=== PATIENT | male | born 1955 | race Caucasian/White ===

== ENCOUNTER 2021-08-02 10:21 | Inpatient (IN) ==
[2021-08-02] MEDS ORDERED: DEXAMETHASONE 10 MG/ML VIAL IV ONE (10:29)
[2021-08-02] MEDS ORDERED: 0.9 % SODIUM CHLORIDE 500 ML IV ONE (10:30)
[2021-08-02] MEDS ORDERED: ACETAMINOPHEN 325 MG TABLET PO ONE (10:31)
--- NOTE | 2021-08-02 10:36 | Emergency Department Note ---
HPI General Chief complaint: Shortness of Breath/Dyspnea Stated complaint: Shortness of breath Time Seen by Provider: 08/02/21 10:29 Mode of arrival: ambulatory Limitations: altered mental status History of Present Illness HPI Narrative: Narrative: 66 yo M w/ h/o CAD, HTN, MICKIE, DM2, and recent Dx of COVID 19 p/w SOB, hypoxia, tachycardia, tachypnea. He has been feeling unwell for about two weeks. He has had constant SOB worsened w/ exertion, accompanied by cough productive of "milky" sputum over that time. On asked about chest pain he reports that he does have this, but cannot give further details. He denies peripheral edema, immob ilization. His Hx is very limited - he is slow to answer questions and seems to be unable to maintain attention to give full answers. He was sent here from [facility] where he was found to have SaO2 85% on RA, HR 114, and RR 28 w/ ALOC. Related Data Home Medications Medication Instructions Recorded Confirmed aspirin 81 mg tablet,delayed 81 mg PO QDAY 03/13/16 08/02/21 release (Adult Low Dose Aspirin) Previous Rx's Medication Instructions Recorded blood sugar diagnostic (Blood #100 ea 03/29/21 Glucose Test) blood-glucose meter (Blood Glucose #1 ea 03/29/21 Monitoring) lancets #100 ea 03/29/21 metformin 1,000 mg tablet 1,000 mg PO BID #60 tab 04/21/21 losartan 25 mg tablet 25 mg PO QDAY #30 tab 05/04/21 levothyroxine 25 mcg tablet 25 mcg PO QDAY #60 tab 05/05/21 (Synthroid) gabapentin 100 mg capsule 200 mg PO BID #120 cap 07/07/21 Allergies Allergy/AdvReac Type Severity Reaction Status Date / Time [id number] Reductase AdvReac Mild Intolerance Verified 08/02/21 10:32 Inhibitor Review of Systems ROS ROS Narrative: Narrative: All systems ED: reviewed and negative except as stated. [facility] Narrative Patient History Narrative: Narrative: Medical/Surgical/Family History All Active Problems (Updated 08/02/21 @ 13:07 by Lavelle Spears MD) Acute dyspnea (Acute) HTN (hypertension) (Acute) CAD (coronary artery disease) (Acute) Pneumonia due to 2019 novel coronavirus (Acute) DM2 (diabetes mellitus, type 2) (Acute) Weakness (Acute) COVID (Acute) Abdominal pain (Acute) Bilateral flank pain (Acute) Body aches (Acute) BPH loc w/o ur obs/LUTS (Chronic 03/10/13) Hypertension (Chronic) Hyperlipidemia (Chronic) CAD (coronary artery disease) (Chronic) Anemia (Acute) Elevated alkaline phosphatase level (Acute) Elevated ferritin (Acute) Hypovitaminosis D (Chronic) Hypothyroidism (Chronic) Statin intolerance (Chronic) Leg pain (Acute) Muscle tear (Acute) Bilateral knee pain (Chronic) Diabetes mellitus with neuropathy (Chronic) Presence of stent in coronary artery in patient with coronary artery disease (Chronic) Sleep apnea in adult (Chronic) Abnormal thyroid blood test (Acute) Dizziness (Chronic) Impacted cerumen of right ear (Acute) Medical History Abnormal thyroid blood test Bilateral knee pain Body aches BPH loc w/o ur obs/LUTS (03/10/13) Diabetes mellitus with neuropathy Dizziness Hypertension Impacted cerumen of right ear Leg pain Presence of stent in coronary artery in patient with coronary artery disease Sleep apnea in adult ST elevation myocardial infarction (STEMI) Swelling of calf Surgical History History of heart artery stent (~2015) 3 valve stents History of neck surgery (~1971) left side- swollen lymph nodes Family History Father Leukemia Mother Brain tumor Social History Smoking Status: Former smoker Alcohol Intake Frequency: does not drink Substance Use: does not use Exam Narrative Narrative: Narrative: General Limitations: altered mental status General appearance: Present other (slightly confused, slow to respond to questions, ill appearing) Head Head: Present atraumatic and normocephalic Eye Eye: Present normal appearance ENT ENT: Present mucous membranes dry Neck Neck: Present normal inspection Chest Chest: Present normal inspection and symmetric chest wall rise Respiratory Respiratory: Present normal lung sounds bilaterally; Absent accessory muscle use or decreased breath sounds Cardiovascular Cardiovascular: Present regular rate, normal rhythm, +S1, +S2 and other (2+ B/L radial pulses); Absent systolic murmur or diastolic murmur Adbominal Abdominal: Present soft and normal bowel sounds; Absent distention or tenderness Extremities Extremities: Absent pedal edema Neurological Neurological: Present other (confused, slow to respond, alert to person, place, but not year. ) Psychiatric Psychiatric: Present normal affect Skin Skin: Present warm (WNL) and dry Course Vital Signs Vital signs: Vital Signs Temperature 100.4 F H 08/02/21 10:26 Pulse Rate 105 H 08/02/21 10:26 Respiratory Rate 28 H 08/02/21 10:26 Blood Pressure 89/69 08/02/21 10:26 Pulse Oximetry (%) 93 08/02/21 10:26 Temperature 98.6 F 08/02/21 16:56 Pulse Rate 69 08/02/21 14:41 Respiratory Rate 23 H 08/02/21 18:19 Blood Pressure 113/74 08/02/21 18:00 Pulse Oximetry (%) 93 08/02/21 18:19 MDM MDM Narrative Medical decision making narrative: Narrative: 66 yo M w/ h/o CAD, HTN, MICKIE, DM2, and recent Dx of COVID 19 p/w SOB, hypoxia, tachycardia, tachypnea. DDx - COVID19, PE, PNA, ACS, RADHA, dehydration Pt arrives confused, hypoxic, tachycardic. He was immediately started on supplemental O2 via face mask. His sats responded well to this and more aggressive measures such as BIPAP and ETT were not indicated. I started him on decadron. EKG showed no ischemia, and CXR was c/w COVID19. There was no evidence of assoc'd bacterial PNA. In the absence of sudden worsening and w/ classic COVID presentation, I did not feel that PE was present. Labs showed no RADHA. Clinically he was a little dehydrated and I started him on 500ml NS. Overall presentation was c/w COVID19 PNA. I spoke w/ his regarding his code status and to let her know the ser iousness of his presentation. I had asked him on arrival and he deferred to her. I spoke w/ her on the phone and she deferred to a medical directive that he had signed some time ago. It did not really clarify his code status other than to clarify that he would not want further care if he was deemed to be terminal. Lab Data Result diagrams: 08/02/21 10:29 08/02/21 11:03 Labs: Lab Results 08/02/21 08/02/21 08/02/21 Range/Units 10:29 10:29 10:30 WBC 9.0 (4.5-11.0) K/mcL RBC 5.36 (4.63-6.08) M/mcL Hgb 14.7 (13.7-17.5) g/dL Hct 43.4 (40.1-51.0) % MCV 81.0 (80.0-100.0) fL MCH 27.4 (26.0-34.0) pg MCHC 33.9 (31.0-36.0) g/dL RDW 13.2 (11.5-14.5) % Plt Count 229 (140-440) K/mcL MPV 11.9 H (7.4-10.4) fL Neut % (Auto) 85.5 H (38.0-78.0) % Lymph % (Auto) 10.3 L (15.5-49.0) % [place] % (Auto) 2.2 (1.0-12.0) % Eos % (Auto) 1.7 (0.0-7.0) % Baso % (Auto) 0.3 (0.0-2.0) % Lymph # (Auto) 0.93 L (1.50-4.80) K/mcL [place] # (Auto) 0.20 (0.10-0.90) K/mcL Eos # (Auto) 0.15 (0.00-0.70) K/mcL Baso # (Auto) 0.03 (0.00-0.30) K/mcL Absolute Neutrophils 7.69 (1.80-8.00) K/mcL D-Dimer (0.27-0.5) ug/mL ABG Methemoglobin VBG pH VBG pCO2 VBG pO2 VBG HCO3 VBG Total CO2 VBG O2 Saturation VBG Base Excess VBG Lactic Acid (0.5-2.0) mmol/L Carboxyhemoglobin Total Hemoglobin Sodium (133-145) mmol/L Potassium (3.3-5.1) mmol/L Chloride (96-108) mmol/L Carbon Dioxide (22-30) mmol/L Anion Gap (8.0-16.0) BUN (8-23) mg/dL Creatinine (0.7-1.2) mg/dL GFR Calculation Glucose (70-105) mg/dL Hemoglobin A1c 9.6 H (4.0-6.0) % Hgb Estim Average Glucose 229 mg/dL Calcium (8.6-10.4) mg/dL Ferritin (30.0-400.0) ng/mL Total Bilirubin (0.1-1.0) mg/dL AST (<40) U/L ALT (<40) U/L Alkaline Phosphatase (39-117) U/L Troponin T < 0.01 (<0.03) ng/mL C-Reactive Protein (0.03-0.80) mg/dL Total Protein (5.9-8.4) gm/dL Albumin (3.2-5.2) gm/dL Globulin (2.2-3.7) gm/dL Albumin/Globulin Ratio (1.0-2.3) 08/02/21 08/02/21 08/02/21 Range/Units 11:03 11:03 11:03 WBC (4.5-11.0) K/mcL RBC (4.63-6.08) M/mcL Hgb (13.7-17.5) g/dL Hct (40.1-51.0) % MCV (80.0-100.0) fL MCH (26.0-34.0) pg MCHC (31.0-36.0) g/dL RDW (11.5-14.5) % Plt Count (140-440) K/mcL MPV (7.4-10.4) fL Neut % (Auto) (38.0-78.0) % Lymph % (Auto) (15.5-49.0) % [place] % (Auto) (1.0-12.0) % Eos % (Auto) (0.0-7.0) % Baso % (Auto) (0.0-2.0) % Lymph # (Auto) (1.50-4.80) K/mcL [place] # (Auto) (0.10-0.90) K/mcL Eos # (Auto) (0.00-0.70) K/mcL Baso # (Auto) (0.00-0.30) K/mcL Absolute Neutrophils (1.80-8.00) K/mcL D-Dimer > 20.0 H (0.27-0.5) ug/mL ABG Methemoglobin VBG pH VBG pCO2 VBG pO2 VBG HCO3 VBG Total CO2 VBG O2 Saturation VBG Base Excess VBG Lactic Acid 2.7 H (0.5-2.0) mmol/L Carboxyhemoglobin Total Hemoglobin Sodium 132 L (133-145) mmol/L Potassium 3.4 (3.3-5.1) mmol/L Chloride 92 L (96-108) mmol/L Carbon Dioxide 24 (22-30) mmol/L Anion Gap 16.0 (8.0-16.0) BUN 13 (8-23) mg/dL Creatinine 0.7 (0.7-1.2) mg/dL GFR Calculation 97 Glucose 193 H (70-105) mg/dL Hemoglobin A1c (4.0-6.0) % Hgb Estim Average Glucose mg/dL Calcium 8.4 L (8.6-10.4) mg/dL Ferritin 1126.0 H (30.0-400.0) ng/mL Total Bilirubin 1.0 (0.1-1.0) mg/dL AST 73 H (<40) U/L ALT 24 (<40) U/L Alkaline Phosphatase 131 H (39-117) U/L Troponin T (<0.03) ng/mL C-Reactive Protein 7.20 H (0.03-0.80) mg/dL Total Protein 7.5 (5.9-8.4) gm/dL Albumin 3.0 L (3.2-5.2) gm/dL Globulin 4.5 H (2.2-3.7) gm/dL Albumin/Globulin Ratio 0.7 L (1.0-2.3) 08/02/21 Range/Units 11:32 WBC (4.5-11.0) K/mcL RBC (4.63-6.08) M/mcL Hgb (13.7-17.5) g/dL Hct (40.1-51.0) % MCV (80.0-100.0) fL MCH (26.0-34.0) pg MCHC (31.0-36.0) g/dL RDW (11.5-14.5) % Plt Count (140-440) K/mcL MPV (7.4-10.4) fL Neut % (Auto) (38.0-78.0) % Lymph % (Auto) (15.5-49.0) % [place] % (Auto) (1.0-12.0) % Eos % (Auto) (0.0-7.0) % Baso % (Auto) (0.0-2.0) % Lymph # (Auto) (1.50-4.80) K/mcL [place] # (Auto) (0.10-0.90) K/mcL Eos # (Auto) (0.00-0.70) K/mcL Baso # (Auto) (0.00-0.30) K/mcL Absolute Neutrophils (1.80-8.00) K/mcL D-Dimer (0.27-0.5) ug/mL ABG Methemoglobin TNP VBG pH TNP VBG pCO2 TNP VBG pO2 TNP VBG HCO3 TNP VBG Total CO2 TNP VBG O2 Saturation TNP VBG Base Excess TNP VBG Lactic Acid (0.5-2.0) mmol/L Carboxyhemoglobin TNP Total Hemoglobin TNP Sodium (133-145) mmol/L Potassium (3.3-5.1) mmol/L Chloride (96-108) mmol/L Carbon Dioxide (22-30) mmol/L Anion Gap (8.0-16.0) BUN (8-23) mg/dL Creatinine (0.7-1.2) mg/dL GFR Calculation Glucose (70-105) mg/dL Hemoglobin A1c (4.0-6.0) % Hgb Estim Average Glucose mg/dL Calcium (8.6-10.4) mg/dL Ferritin (30.0-400.0) ng/mL Total Bilirubin (0.1-1.0) mg/dL AST (<40) U/L ALT (<40) U/L Alkaline Phosphatase (39-117) U/L Troponin T (<0.03) ng/mL C-Reactive Protein (0.03-0.80) mg/dL Total Protein (5.9-8.4) gm/dL Albumin (3.2-5.2) gm/dL Globulin (2.2-3.7) gm/dL Albumin/Globulin Ratio (1.0-2.3) EKG Data EKG #1: EKG attestation: Yes I reviewed and interpreted this EKG. EKG results narrative: Sinus rate of 103 IN 154, QRS 172 QT 402 QTc 526 RBBB, LPFB No STEMI Similar to previous EKG CC TIME Critical Care Time Attestation: Approximately 35 minutes of critical care time was used in order to assess and manage the high probability of imminent or life threatening deterioration to CVS, pulmonary system, which required my highest level of preparedness and interventions with frequent patient assessments. This time is excluding time spent on separately billable procedures. Discharge Plan Patient/Caregiver Discharge Instructions Pt seen by [employer]ER/PA only: No Clinical Impression: Acute dyspnea, HTN (hypertension), CAD (coronary artery disease), Pneumonia due to 2019 novel coronavirus, DM2 (diabetes mellitus, type 2) Patient Disposition: Xfer As Inpt ([facility]) Condition: Serious Discharge Date/Time: 08/02/21 14:55
--- NOTE | 2021-08-02 10:58 | XRay Report ---
HISTORY: Short of breath, chest pain, fever FINDINGS: There are severe diffuse alveolar infiltrates throughout both lungs. Lung volumes are normal. There is no lobar consolidation or pleural effusion. The heart size is within upper limits of normal. The infiltrates surround both cheryl which makes evaluation of the cheryl limited. The infiltrates are new since prior x-ray done on 03/07/16. IMPRESSION: Severe bilateral pneumonia Interpreted and Authenticated by: Yifan Argueta 08/02/21
[2021-08-02 11:38] LABS: Basophils # (Auto) 0.03 K/mcL (0.00-0.30); Basophils % (Auto) 0.3 % (0.0-2.0); Eosinophils # (Auto) 0.15 K/mcL (0.00-0.70); Eosinophils % (Auto) 1.7 % (0.0-7.0); Hematocrit 43.4 % (40.1-51.0); Hemoglobin 14.7 g/dL (13.7-17.5); Lymphocytes # (Auto) 0.93 K/mcL (1.50-4.80); Lymphocytes % (Auto) 10.3 % (15.5-49.0); Mean Corpuscular HGB Conc 33.9 g/dL (31.0-36.0); Mean Platelet Volume 11.9 fL (7.4-10.4); Monocytes % (Auto) 2.2 % (1.0-12.0); Neutrophils % (Auto) 85.5 % (38.0-78.0); Platelet Count 229 K/mcL (140-440); RBC 5.36 M/mcL (4.63-6.08); Red Cell Distribution Width 13.2 % (11.5-14.5)
[2021-08-02 12:01] LABS: ALT/SGPT 24 U/L (<40); AST/SGOT 73 U/L (<40); Albumin/Globulin Ratio 0.7 (1.0-2.3); Alkaline Phosphatase 131 U/L (39-117); Blood Urea Nitrogen 13 mg/dL (8-23); Calcium 8.4 mg/dL (8.6-10.4); Carbon Dioxide 24 mmol/L (22-30); Chloride 92 mmol/L (96-108); Globulin 4.5 gm/dL (2.2-3.7); Glomerular Filtration Rate 97; Glucose 193 mg/dL (70-105)
[2021-08-02] MEDS ORDERED: REMDESIVIR 200 MG in 0.9 % SODIUM CHLORIDE 250 ML IV ONE ×2 (13:06→16:00)
--- NOTE | 2021-08-02 13:24 | Internal Med History&Physical ---
HPI History of Present Illness Patient information: Note initiated : 08/02/21 at 1:16 pm Service Date, if different from initiated Date: [] Patient: Pedro Luis Bang a 66 y/o M admitted on for Shortness of breath. Chief Complaint: [] History of present illness: Mr. Bang is a 66 year old M Who was diagnosed with COVID several weeks ago has had worsening shortness of breath and cough for the past couple weeks. He has become very lethargic and his is quite concerned he went into urgent care and his sats were on room air were in the mid 80s. Patient complains of severe weakness. Is on 5 L in the ED. Patient denies fever chills nausea vomiting diarrhea chest pain. Patient is not vaccinated. Review of Systems: Positives as above. Denies headache/fever/chills/nausea/vomiting/chest or abdominal pain/diarrhea. Remaining 10 point review of system reviewed negative PFSH PFSH All Active Problems (Updated 08/02/21 @ 13:07 by Lavelle Spears MD) Acute dyspnea (Acute) HTN (hypertension) (Acute) CAD (coronary artery disease) (Acute) Pneumonia due to 2019 novel coronavirus (Acute) DM2 (diabetes mellitus, type 2) (Acute) Weakness (Acute) COVID (Acute) Abdominal pain (Acute) Bilateral flank pain (Acute) Body aches (Acute) BPH loc w/o ur obs/LUTS (Chronic 03/10/13) Hypertension (Chronic) Hyperlipidemia (Chronic) CAD (coronary artery disease) (Chronic) Anemia (Acute) Elevated alkaline phosphatase level (Acute) Elevated ferritin (Acute) Hypovitaminosis D (Chronic) Hypothyroidism (Chronic) Statin intolerance (Chronic) Leg pain (Acute) Muscle tear (Acute) Bilateral knee pain (Chronic) Diabetes mellitus with neuropathy (Chronic) Presence of stent in coronary artery in patient with coronary artery disease (Chronic) Sleep apnea in adult (Chronic) Abnormal thyroid blood test (Acute) Dizziness (Chronic) Impacted cerumen of right ear (Acute) Medical History Abnormal thyroid blood test Bilateral knee pain Body aches BPH loc w/o ur obs/LUTS (03/10/13) Diabetes mellitus with neuropathy Dizziness Hypertension Impacted cerumen of right ear Leg pain Presence of stent in coronary artery in patient with coronary artery disease Sleep apnea in adult ST elevation myocardial infarction (STEMI) Swelling of calf Surgical History History of heart artery stent (~2015) 3 valve stents History of neck surgery (~1971) left side- swollen lymph nodes Family History Father Leukemia Mother Brain tumor Social History marital status: occupational status: retired smoking status: Former smoker quit date: 03/07/16 pack-years: 80 alcohol intake frequency: does not drink substance use type: does not use MEDS/ALLERGIES Home Medications and Allergies Home Medications Medication Instructions Recorded Confirmed Type aspirin 81 mg tablet,delayed 81 mg PO QDAY 03/13/16 08/02/21 History release (Adult Low Dose Aspirin) blood sugar diagnostic (Blood #100 ea 03/29/21 08/02/21 Rx Glucose Test) blood-glucose meter (Blood Glucose #1 ea 03/29/21 08/02/21 Rx Monitoring) lancets #100 ea 03/29/21 08/02/21 Rx metformin 1,000 mg tablet 1,000 mg PO BID #60 tab 04/21/21 08/02/21 Rx losartan 25 mg tablet 25 mg PO QDAY #30 tab 05/04/21 08/02/21 Rx levothyroxine 25 mcg tablet 25 mcg PO QDAY #60 tab 05/05/21 08/02/21 Rx (Synthroid) gabapentin 100 mg capsule 200 mg PO BID #120 cap 07/07/21 08/02/21 Rx etodolac 400 mg tablet 400 mg PO BID 14 Days #28 tab 07/20/21 08/02/21 Rx Allergies Allergy/AdvReac Type Severity Reaction Status Date / Time [id number] Reductase AdvReac Mild Intolerance Verified 08/02/21 10:32 Inhibitor EXAM Constitutional Vitals: Temp Pulse Resp BP Pulse Ox 100.4 F H 76 24 H 102/77 94 08/02/21 10:45 08/02/21 12:41 08/02/21 12:41 08/02/21 12:01 08/02/21 12:41 Exam: General: Alert, Awake, No acute Distress, overweight Eyes/N/T: EOMI, PERRL, Head/Neck: neck supple, normocephalic atraumatic CV: RRR, No murmurs, split @S2 Pulm: Clear b/l, no wheezing/rhonchi/rales Abd: soft, nontender, +BS x4 Ext: no clubbing/cyanosis/edema Neuro: Alert, no focal deficits, moves all extremities, CN 2-12 grossly intact, symmetrical strength b/l upper/lower, sensations intact b/l upper/lower Skin: warm/dry DATA Data Completed and Pending Labs: Labs from last 24 hours 08/02/21 08/02/21 08/02/21 11:32 11:03 10:30 WBC RBC Hgb Hct MCV MCH MCHC RDW Plt Count MPV Neut % (Auto) Lymph % (Auto) [place] % (Auto) Eos % (Auto) Baso % (Auto) Lymph # (Auto) [place] # (Auto) Eos # (Auto) Baso # (Auto) Absolute Neutrophils ABG Methemoglobin TNP VBG pH TNP VBG pCO2 TNP VBG pO2 TNP VBG HCO3 TNP VBG Total CO2 TNP VBG O2 Saturation TNP VBG Base Excess TNP VBG Lactic Acid 2.7 H Carboxyhemoglobin TNP Total Hemoglobin TNP Sodium 132 L Potassium 3.4 Chloride 92 L Carbon Dioxide 24 Anion Gap 16.0 BUN 13 Creatinine 0.7 GFR Calculation 97 Glucose 193 H Calcium 8.4 L Total Bilirubin 1.0 AST 73 H ALT 24 Alkaline Phosphatase 131 H Total Creatine Kinase Pending CK-MB (CK-2) Pending Troponin T < 0.01 Total Protein 7.5 Albumin 3.0 L Globulin 4.5 H Albumin/Globulin Ratio 0.7 L 08/02/21 10:29 WBC 9.0 RBC 5.36 Hgb 14.7 Hct 43.4 MCV 81.0 MCH 27.4 MCHC 33.9 RDW 13.2 Plt Count 229 MPV 11.9 H Neut % (Auto) 85.5 H Lymph % (Auto) 10.3 L [place] % (Auto) 2.2 Eos % (Auto) 1.7 Baso % (Auto) 0.3 Lymph # (Auto) 0.93 L [place] # (Auto) 0.20 Eos # (Auto) 0.15 Baso # (Auto) 0.03 Absolute Neutrophils 7.69 ABG Methemoglobin VBG pH VBG pCO2 VBG pO2 VBG HCO3 VBG Total CO2 VBG O2 Saturation VBG Base Excess VBG Lactic Acid Carboxyhemoglobin Total Hemoglobin Sodium Potassium Chloride Carbon Dioxide Anion Gap BUN Creatinine GFR Calculation Glucose Calcium Total Bilirubin AST ALT Alkaline Phosphatase Total Creatine Kinase CK-MB (CK-2) Troponin T Total Protein Albumin Globulin Albumin/Globulin Ratio A/P Narrative A/P Narrative: A: *COVID-pneumonia w/ : *Acute hypoxic respiratory failure: -on 5L oxymask *Generalized weakness/lethargy: 2/2 above *DM w/neuropathy: *CAD w/stent: *Obesity: *MICKIE: *HTN: *Hypothyroidism: * P: -Dexa/Remdes/Baric -O2 supp, wean as able -IS/[place], prn nebs, RT -Proning/mobilization/OOB to chair -check laboratory markers, ABG -cont ASA and ARB - -PT/OT -Home medication reconciliation -ppx: lovenox full code Time Spent With Patient Time: Total time spent is greater than 50% in coordination of care (as documented) at patient's floor/unit and/or counseling patient:
--- NOTE | 2021-08-02 13:34 | EKG ---
[facility] Test Date: 2021-08-02 Pat Name: Pedro Luis Bang Department: ED Room: Gender: Male Technical Service Representative: : 1955 Requested By: Lavelle Spears Order Number: [id number] Reading MD: Stone Jacinto Measurements Intervals [place] Rate: 103 P: 30 [place]: 154 QRS: 142 QRSD: 172 T: 2 QT: 402 QTc: 526 Interpretive Statements Sinus tachycardia RBBB Electronically Signed On 08-02-2021 13:34:06 PST by Stone Jacinto /store/M0/[id number]
[2021-08-02 14:10] LABS: C-Reactive Protein 7.2 mg/dL (0.03-0.80)
[2021-08-02] MEDS ORDERED: ONDANSETRON 4 MG/2 ML VIAL IV PRN (14:59)
[2021-08-02] MEDS ORDERED: IPRATROPIUM/ALBUTEROL 3 ML AMPUL.NEB NEB PRN (14:59)
[2021-08-02] MEDS ORDERED: DEXTROSE 31 GM ORAL.SUSP PO PRN (14:59)
[2021-08-02] MEDS ORDERED: POTASSIUM CHLORIDE 20 MEQ TABLET PO PRN ×2 (14:59)
[2021-08-02] MEDS ORDERED: SENNOSIDES 1 TABLET PO PRN (14:59)
[2021-08-02] MEDS ORDERED: DEXTROSE 50% 50 ML VIAL IV PRN (14:59)
[2021-08-02] MEDS ORDERED: MAGNESIUM SULFATE 2 GM/50 ML BAG IV PRN (14:59)
[2021-08-02] MEDS ORDERED: POTASSIUM CHLORIDE 40 MEQ in DEXTROSE 5% IN WATER 500 ML IV PRN (14:59)
[2021-08-02] MEDS ORDERED: POLYETHYLENE GLYCOL 3350 17 GM PACKET PO PRN (14:59)
[2021-08-02] MEDS ORDERED: ENOXAPARIN 80 MG/0.8 ML SYRINGE SQ ONE (15:14)
[2021-08-02 15:55] LABS: Hemoglobin A1C 9.6 % Hgb (4.0-6.0)
[2021-08-02] MEDS: BARICITINIB 2 MG TABLET PO SCH (16:12)
[2021-08-02] MEDS: 0.9 % SODIUM CHLORIDE 10 ML SYRINGE IV SCH ×2 (16:53→20:36)
[2021-08-02] MEDS: INSULIN LISPRO 1 UNIT/0.01 ML UNIT SQ SCH ×2 (16:57→20:36)
[2021-08-02] MEDS ORDERED: ENOXAPARIN 40 MG/0.4 ML SYRINGE SQ SCH (21:00)
[2021-08-02 21:54] LABS: Creatine Kinase 54 U/L (24-195); Creatine Kinase MB 1.7 ng/mL (<6.7)
[2021-08-03] MEDS: 0.9 % SODIUM CHLORIDE 10 ML SYRINGE IV SCH ×3 (05:43→20:56)
[2021-08-03 07:12] LABS: ALT/SGPT 22 U/L (<40); AST/SGOT 59 U/L (<40); Albumin 2.6 gm/dL (3.2-5.2); Albumin/Globulin Ratio 0.6 (1.0-2.3); Alkaline Phosphatase 117 U/L (39-117); Bilirubin,Direct < 0.2 mg/dL (0-0.3); Bilirubin,Total 0.5 mg/dL (0.1-1.0); Blood Urea Nitrogen 14 mg/dL (8-23); Calcium 8.3 mg/dL (8.6-10.4); Carbon Dioxide 22 mmol/L (22-30); Chloride 98 mmol/L (96-108); Glomerular Filtration Rate 112; Glucose 213 mg/dL (70-105); Lactate Dehydrogenase 567 U/L (135-225); Phosphorous 2.2 mg/dL (2.5-4.5); Triglycerides 124 mg/dL (<150); Uric Acid 3.6 mg/dL (2.5-8.0)
[2021-08-03 07:46] LABS: Basophils # (Auto) 0.01 K/mcL (0.00-0.30); Basophils % (Auto) 0.2 % (0.0-2.0); Eosinophils # (Auto) 0.02 K/mcL (0.00-0.70); Eosinophils % (Auto) 0.3 % (0.0-7.0); Hematocrit 39.3 % (40.1-51.0); Hemoglobin 13.2 g/dL (13.7-17.5); Lymphocytes # (Auto) 0.98 K/mcL (1.50-4.80); Lymphocytes % (Auto) 16.2 % (15.5-49.0); Mean Cell Volume 82.6 fL (80.0-100.0); Mean Corpuscular HGB Conc 33.6 g/dL (31.0-36.0); Mean Platelet Volume 11.6 fL (7.4-10.4); Monocytes # (Auto) 0.13 K/mcL (0.10-0.90); Monocytes % (Auto) 2.2 % (1.0-12.0); Neutrophils % (Auto) 81.1 % (38.0-78.0); Platelet Count 195 K/mcL (140-440); RBC 4.76 M/mcL (4.63-6.08); Red Cell Distribution Width 13.4 % (11.5-14.5)
[2021-08-03] MEDS ORDERED: ALBUMIN HUMAN 12.5 GM/50 ML BAG IV ONE (07:57)
[2021-08-03] MEDS ORDERED: FUROSEMIDE 40 MG/4 ML VIAL IV ONE (07:57)
--- NOTE | 2021-08-03 07:59 | Internal Med Progress Note ---
SUBJECTIVE Subjective Patient information: Note initiated : 08/03/21 at 7:53 am Service Date, if different from initiated Date: [] Patient: Pedro Luis Bang 66 y/o M admitted on 08/02/21 for Shortness of breath. Chief Complaint: [] Interval history: Chief Complaint: [] History of present illness: Mr. Bang is a 66 year old M Who was diagnosed with COVID several weeks ago has had worsening shortness of breath and cough for the past couple weeks. He has become very lethargic and his is quite concerned he went into urgent care and his sats were on room air were in the mid 80s. Patient complains of severe weakness. Is on 5 L in the ED. Patient denies fever chills nausea vomiting diarrhea chest pain. Patient is not vaccinated. 08/03 Patient requiring more oxygen. Patient states occasional cough. Shortness of breath similar to yesterday. CTA today with severe COVID-pneumonia but also pulmonary emboli predominantly involving the right lower lobe. Review of Systems: denies headache/fever/chills/nausea/vomiting/chest or abdominal pain/diarrhea. Otherwise see above. Constitutional Vitals: Vital Signs Temp Pulse Resp BP Pulse Ox 97.7 F 65 22 92/55 92 08/03/21 04:03 08/03/21 07:50 08/03/21 07:50 08/03/21 06:01 08/03/21 07:50 Period Temp Pulse Resp BP Sys/Munoz Pulse Ox Last 24 Hr 97.0 F-100.4 F 63-105 14-30 89-129/51-114 85-98 Intake and Output 08/02/21 08/03/21 08/03/21 21:59 05:59 13:59 Intake Total 250 800 Output Total 500 400 Balance -250 400 Weight 95.339 kg Intake & Output: Intake & Output 08/02/21 08/03/21 08/03/21 21:59 05:59 13:59 Intake Total 250 800 Output Total 500 400 Balance -250 400 Weight 95.339 kg Intake: IV 250 Veklury 200 mg In Sodium 250 Chloride 0.9% 250 ml @ 500 mls/ hr IV ONCE ONE Rx#:[id number] Oral 800 Output: Void Amount 500 400 Other: Urine Appearance Clear Clear Urine Color Light Kenisha Light Kenisha Urine Odor Normal Exam: General: Alert, Awake, No acute Distress, overweight Eyes/N/T: EOMI, , Head/Neck: neck supple, CV: RRR, No murmurs, split @S2 Pulm: mild subtle fine rales b/l, no wheezing/rhonchi Abd: soft, nontender, +BS x4 Ext: no clubbing/cyanosis/edema Neuro: Alert, no focal deficits, moves all extremities, Skin: warm/dry OBJ DATA Labs CBC & Chem 7: 08/03/21 05:09 08/03/21 05:09 Labs: Abnormal Lab Results 08/03/21 08/03/21 08/02/21 05:09 05:09 11:03 Hgb 13.2 L Hct 39.3 L MPV 11.6 H Neut % (Auto) 81.1 H Lymph % (Auto) Lymph # (Auto) 0.98 L D-Dimer VBG Lactic Acid Sodium 132 L Chloride Creatinine 0.5 L Glucose 213 H Hemoglobin A1c Calcium 8.3 L Phosphorus 2.2 L Ferritin 1126.0 H GGT 72 H AST 59 H Alkaline Phosphatase Lactate Dehydrogenase 567 H C-Reactive Protein 7.20 H Albumin 2.6 L Globulin 4.0 H Albumin/Globulin Ratio 0.6 L 08/02/21 08/02/21 08/02/21 11:03 11:03 10:29 Hgb Hct MPV Neut % (Auto) Lymph % (Auto) Lymph # (Auto) D-Dimer > 20.0 H VBG Lactic Acid 2.7 H Sodium 132 L Chloride 92 L Creatinine Glucose 193 H Hemoglobin A1c 9.6 H Calcium 8.4 L Phosphorus Ferritin GGT AST 73 H Alkaline Phosphatase 131 H Lactate Dehydrogenase C-Reactive Protein Albumin 3.0 L Globulin 4.5 H Albumin/Globulin Ratio 0.7 L 08/02/21 10:29 Hgb Hct MPV 11.9 H Neut % (Auto) 85.5 H Lymph % (Auto) 10.3 L Lymph # (Auto) 0.93 L D-Dimer VBG Lactic Acid Sodium Chloride Creatinine Glucose Hemoglobin A1c Calcium Phosphorus Ferritin GGT AST Alkaline Phosphatase Lactate Dehydrogenase C-Reactive Protein Albumin Globulin Albumin/Globulin Ratio Meds: Medications Acetaminophen (Acetaminophen 325 Mg Tablet) 650 mg PO Q6HP PRN; Protocol PRN Reason: Per Pain Protocol/Fever > 101 Albuterol/Ipratropium (Ipratropium/Albuterol 3 Ml Ampul.Neb) 3 ml NEB Q4HP PRN PRN Reason: Shortness Of Breath Dextrose (Dextrose 50% 50 Ml Vial) 0 ml IV UD PRN PRN Reason: Hypoglycemia Diagnostic Test (Pha) (Accu-Chek 1 Each Strip) 1 each FS [facility] Last Admin: 08/03/21 06:54 Dose: 1 each Documented by: Enoxaparin Sodium (Enoxaparin 80 Mg/0.8 Ml Syringe) 80 mg SQ DAILY [facility] Glucose (Dextrose 31 Gm Oral.Susp) 15 gm PO PRN PRN PRN Reason: Hypoglycemia REMDESIVIR 100 mg/ Sodium (Chloride) 250 mls @ 500 mls/hr IV Q24H [facility] Stop: 08/06/21 14:29 Potassium Chloride 40 meq/ (Dextrose) 520 mls @ 130 mls/hr IV UD PRN PRN Reason: Potassium < 3 Magnesium Sulfate (Magnesium Sulfate) 2 gm in 50 mls @ 50 mls/hr IV UD PRN PRN Reason: Magnesium </= 1.6 Insulin Human Lispro (Insulin Lispro 1 Unit/0.01 Ml Unit) 0 unit SQ [facility]; Protocol Last Admin: 08/02/21 20:36 Dose: 10 unit Documented by: Ondansetron HCl (Ondansetron 4 Mg/2 Ml Vial) 4 mg IV Q4HP PRN PRN Reason: Nausea And Vomiting Polyethylene Glycol (Polyethylene Glycol 3350 17 Gm Packet) 17 gm PO DAILYP PRN PRN Reason: Constipation Potassium Chloride (Potassium Chloride 20 Meq Tablet) 40 meq PO UD PRN PRN Reason: Potssium is 3-3.5 Last Admin: 08/02/21 16:54 Dose: 40 meq Documented by: Potassium Chloride (Potassium Chloride 20 Meq Tablet) 40 meq PO UD PRN PRN Reason: Potassium < 3 Senna (Sennosides 1 Tablet) 2 tab PO DAILYP PRN PRN Reason: Constipation Sodium Chloride (0.9 % Sodium Chloride 10 Ml Syringe) 10 ml IV Q8 [facility] Last Admin: 08/03/21 05:43 Dose: 10 ml Documented by: ABG Interpretation ABG results: 08/02/21 11:32 ABG Methemoglobin TNP VBG pH TNP VBG pCO2 TNP VBG pO2 TNP VBG HCO3 TNP VBG Total CO2 TNP VBG O2 Saturation TNP VBG Base Excess TNP A/P Narrative A/P Narrative: A: *COVID-pneumonia w/ARDS: -not vaccinated *RLL Pulm Embolism: *Acute hypoxic respiratory failure: -now on vapotherm 20lpm/60% *Generalized weakness/lethargy: 2/2 above *DM w/neuropathy: *CAD w/stent: *Obesity: *Overweight: *HTN: *Hypothyroidism: *Hyponatremia, mild: P: -Dexa/Remdes/Baric -O2 supp, wean as able -Eliquis -IS/Acapella, prn nebs, RT -Proning/mobilization/OOB to chair -prn lasix -cont ASA and ARB -SSI -PT/OT -ppx: eliquis full code Time Spent With Patient Time: Total time spent is greater than 50% in coordination of care (as documented) at patient's floor/unit and/or counseling patient: QUALITY VTE Deep Vein Thrombosis/Pulmonary Embolism Present on Admission: No
[2021-08-03] MEDS: LEVOTHYROXINE 25 MCG TABLET PO SCH (08:34)
[2021-08-03] MEDS: INSULIN LISPRO 1 UNIT/0.01 ML UNIT SQ SCH ×4 (08:34→20:55)
[2021-08-03] MEDS: ASPIRIN 81 MG TAB.CHEW PO SCH (08:34)
[2021-08-03] MEDS: GABAPENTIN 100 MG CAPSULE PO SCH ×2 (08:34→20:55)
[2021-08-03] MEDS: LOSARTAN 25 MG TABLET PO SCH ×2 (08:34→10:07)
[2021-08-03] MEDS: DEXAMETHASONE 10 MG/ML VIAL IV SCH (08:35)
[2021-08-03] MEDS: BARICITINIB 2 MG TABLET PO SCH (08:36)
[2021-08-03] MEDS ORDERED: ENOXAPARIN 80 MG/0.8 ML SYRINGE SQ SCH (09:00)
[2021-08-03] MEDS ORDERED: IOPAMIDOL 100 ML BOTTLE IV ONE (09:18)
--- NOTE | 2021-08-03 09:36 | Cat Scan Report ---
History: COVID pneumonia, elevated serum d-dimer level, short of breath and hypoxia TECHNIQUE: Following injection of intravenous nonionic contrast the chest was imaged during the pulmonary arterial phase. Sagittal, coronal and axial MIPS images were created. The radiation exposure was limited using dose reduction technology. FINDINGS: There is a mosaic distribution of groundglass alveolar infiltrates throughout both lungs. There is severe involvement bilaterally with the greatest consolidation in the left lower lobe. There is no lobar consolidation. No mass is detected. The trachea and bronchi are normal. There is no pleural effusion. There are a few reactive lymph nodes in the mediastinum. Largest is in the subcarinal space and measures 2.1 cm. There are several pulmonary emboli in the right lung, predominantly involving the right lower lobe. No embolus is seen in the left lung. The central pulmonary arteries are normal. There is no evidence of right heart strain. The heart is normal in size and contour. Aorta is normal in caliber. There are few calcified plaques in aortic arch and there is also mild plaque formation in left anterior descending coronary artery. The capsule of the liver is mildly lobulated and there is mild enlargement of the left lobe and caudate lobes. This could be an early sign of cirrhosis. No ascites is present. IMPRESSION: Severe COVID pneumonia Pulmonary emboli, predominantly involving the right lower lobe Possible cirrhosis Dr. Javier was called with the report Interpreted and Authenticated by: Yifan Argueta 08/03/21
[2021-08-03] MEDS: REMDESIVIR 100 MG in 0.9 % SODIUM CHLORIDE 250 ML IV SCH (14:32)
[2021-08-03] MEDS: ACETAMINOPHEN 325 MG TABLET PO PRN (17:45)
[2021-08-03] MEDS: INSULIN GLARGINE, HUMAN 1 UNIT/0.01 ML SQ SCH (20:54)
[2021-08-03] MEDS: APIXABAN 5 MG TABLET PO SCH (20:55)
[2021-08-04] MEDS: 0.9 % SODIUM CHLORIDE 10 ML SYRINGE IV SCH ×5 (05:11→20:32)
[2021-08-04 07:12] LABS: Basophils # (Auto) 0.02 K/mcL (0.00-0.30); Basophils % (Auto) 0.2 % (0.0-2.0); Eosinophils # (Auto) 0.04 K/mcL (0.00-0.70); Eosinophils % (Auto) 0.5 % (0.0-7.0); Hematocrit 38.3 % (40.1-51.0); Lymphocytes % (Auto) 14.2 % (15.5-49.0); Mean Cell Volume 82.7 fL (80.0-100.0); Mean Corpuscular HGB Conc 33.9 g/dL (31.0-36.0); Mean Platelet Volume 11.6 fL (7.4-10.4); Monocytes # (Auto) 0.24 K/mcL (0.10-0.90); Monocytes % (Auto) 2.8 % (1.0-12.0); Neutrophils % (Auto) 82.3 % (38.0-78.0); Platelet Count 229 K/mcL (140-440); RBC 4.63 M/mcL (4.63-6.08); Red Cell Distribution Width 13.4 % (11.5-14.5); WBC 8.5 K/mcL (4.5-11.0)
[2021-08-04] MEDS: LOSARTAN 25 MG TABLET PO SCH (07:20)
[2021-08-04 07:37] LABS: ALT/SGPT 39 U/L (<40); AST/SGOT 74 U/L (<40); Albumin/Globulin Ratio 0.8 (1.0-2.3); Alkaline Phosphatase 146 U/L (39-117); Bilirubin,Total 0.5 mg/dL (0.1-1.0); Blood Urea Nitrogen 18 mg/dL (8-23); Calcium 8.4 mg/dL (8.6-10.4); Carbon Dioxide 23 mmol/L (22-30); Chloride 101 mmol/L (96-108); Globulin 3.7 gm/dL (2.2-3.7); Glomerular Filtration Rate 112; Glucose 206 mg/dL (70-105)
[2021-08-04] MEDS: BARICITINIB 2 MG TABLET PO SCH (07:51)
[2021-08-04] MEDS: GABAPENTIN 100 MG CAPSULE PO SCH ×2 (07:52→20:32)
[2021-08-04] MEDS: DEXAMETHASONE 10 MG/ML VIAL IV SCH (07:52)
[2021-08-04] MEDS: ASPIRIN 81 MG TAB.CHEW PO SCH (07:52)
[2021-08-04] MEDS: LEVOTHYROXINE 25 MCG TABLET PO SCH (07:52)
[2021-08-04] MEDS: APIXABAN 5 MG TABLET PO SCH ×2 (07:52→20:31)
--- NOTE | 2021-08-04 08:38 | Internal Med Progress Note ---
SUBJECTIVE Subjective Patient information: Note initiated : 08/04/21 at 8:36 am Service Date, if different from initiated Date: [] Patient: Pedro Luis Bang 66 y/o M admitted on 08/02/21 for Shortness of breath. Chief Complaint: [Shortness of breath ] Principal diagnosis: CoVID pneumonia Interval history: Mr. Bang is a 66 year old M Who was diagnosed with COVID several weeks ago has had worsening shortness of breath and cough for the past couple weeks. He has become very lethargic and his is quite concerned he went into urgent care and his sats were on room air were in the mid 80s. Patient complains of severe weakness. Is on 5 L in the ED. Patient denies fever chills nausea vomiting diarrhea chest pain. Patient is not vaccinated. 08/03 Patient requiring more oxygen. Patient states occasional cough. Shortness of breath similar to yesterday. CTA today with severe COVID-pneumonia but also pulmonary emboli predominantly involving the right lower lobe. 08/04: Afebrile overnight. Was on high flow oxygen 35L/min FiO2 35%, switched to nasal cannula oxygen @6L/min this morning. On Dexamethasone and Remdesivir. Improving degree of shortness of breath. c/o nonproductive cough. c/o loss of sense of smell and taste. Improving appetite. Denies wheezing. Denies chest pain. Denies fever or chills or sweating. Constitutional Vitals: Vital Signs Temp Pulse Resp BP Pulse Ox 37.0 C 57 L 12 129/76 93 08/04/21 08:01 08/04/21 08:01 08/04/21 08:01 08/04/21 08:01 08/04/21 08:01 Period Temp Pulse Resp BP Sys/Munoz Pulse Ox Last 24 Hr 36.1 C-37.0 C 52-100 9-26 93-144/53-104 86-99 Intake and Output 08/03/21 08/04/21 08/04/21 21:59 05:59 13:59 Intake Total 1100 1160 Output Total 900 425 Balance 200 735 Weight 94.432 kg Intake & Output: Intake & Output 08/03/21 08/04/21 08/04/21 21:59 05:59 13:59 Intake Total 1100 1160 Output Total 900 425 Balance 200 735 Weight 94.432 kg Intake: IV 250 Veklury 100 mg In Sodium 250 Chloride 0.9% 250 ml @ 500 mls/ hr IV Q24H [facility] Rx#:[id number] Oral 850 1160 Output: Void Amount 300 425 Stool 600 Other: Urine Appearance Clear Urine Color Dark Yellow Stool Size Copious Stool Color Brown Stool Consistency Liquid # Bowel Movements 1 General appearance: average body habitus, cooperative and no acute distress Head Head exam: Present atraumatic and normal inspection Eye Eye exam: Present normal appearance ENT ENT exam: Present mucous membranes moist, normal exam and normal external ear exam Additional comments: Nasal cannula in place Neck Neck exam: Present normal inspection Respiratory Respiratory exam: Present normal respiratory exam Cardiovascular Cardiovascular exam: Present normal rate and rhythm GI/Abdominal GI/Abdominal exam: Present normal bowel sounds Back Exam Back exam: Present normal inspection Neurological Exam Neurological exam: Present alert and oriented X3 Skin Skin exam: Present intact and warm OBJ DATA Labs CBC & Chem 7: 08/04/21 05:28 08/04/21 05:28 Labs: Abnormal Lab Results 08/04/21 08/04/21 08/03/21 05:28 05:28 05:09 Hgb 13.0 L Hct 38.3 L MPV 11.6 H Neut % (Auto) 82.3 H Lymph % (Auto) 14.2 L Lymph # (Auto) 1.20 L D-Dimer VBG Lactic Acid Sodium 132 L Chloride Creatinine 0.5 L 0.5 L Glucose 206 H 213 H Hemoglobin A1c Calcium 8.4 L 8.3 L Phosphorus 2.2 L Ferritin GGT 72 H AST 74 H 59 H Alkaline Phosphatase 146 H Lactate Dehydrogenase 567 H C-Reactive Protein Albumin 3.0 L 2.6 L Globulin 4.0 H Albumin/Globulin Ratio 0.8 L 0.6 L 08/03/21 08/03/21 08/02/21 05:09 05:09 11:03 Hgb 13.2 L Hct 39.3 L MPV 11.6 H Neut % (Auto) 81.1 H Lymph % (Auto) Lymph # (Auto) 0.98 L D-Dimer > 20.0 H VBG Lactic Acid Sodium Chloride Creatinine Glucose Hemoglobin A1c Calcium Phosphorus Ferritin 1126.0 H GGT AST Alkaline Phosphatase Lactate Dehydrogenase C-Reactive Protein 7.20 H Albumin Globulin Albumin/Globulin Ratio 08/02/21 08/02/2122 11:03 11:03 10:29 Hgb Hct MPV Neut % (Auto) Lymph % (Auto) Lymph # (Auto) D-Dimer > 20.0 H VBG Lactic Acid 2.7 H Sodium 132 L Chloride 92 L Creatinine Glucose 193 H Hemoglobin A1c 9.6 H Calcium 8.4 L Phosphorus Ferritin GGT AST 73 H Alkaline Phosphatase 131 H Lactate Dehydrogenase C-Reactive Protein Albumin 3.0 L Globulin 4.5 H Albumin/Globulin Ratio 0.7 L 08/02/21 10:29 Hgb Hct MPV 11.9 H Neut % (Auto) 85.5 H Lymph % (Auto) 10.3 L Lymph # (Auto) 0.93 L D-Dimer VBG Lactic Acid Sodium Chloride Creatinine Glucose Hemoglobin A1c Calcium Phosphorus Ferritin GGT AST Alkaline Phosphatase Lactate Dehydrogenase C-Reactive Protein Albumin Globulin Albumin/Globulin Ratio Meds: Medications Acetaminophen (Acetaminophen 325 Mg Tablet) 650 mg PO Q6HP PRN; Protocol PRN Reason: Per Pain Protocol/Fever > 101 Last Admin: 08/03/21 17:45 Dose: 650 mg Documented by: Albuterol/Ipratropium (Ipratropium/Albuterol 3 Ml Ampul.Neb) 3 ml NEB Q4HP PRN PRN Reason: Shortness Of Breath Apixaban (Apixaban 5 Mg Tablet) 10 mg PO BID [facility] Last Admin: 08/04/21 07:52 Dose: 10 mg Documented by: Aspirin (Aspirin 81 Mg Tab.Chew) 81 mg PO DAILY [facility] Last Admin: 08/04/21 07:52 Dose: 81 mg Documented by: Dexamethasone (Dexamethasone 10 Mg/Ml Vial) 6 mg IV DAILY [facility] Last Admin: 08/04/21 07:52 Dose: 6 mg Documented by: Dextrose (Dextrose 50% 50 Ml Vial) 0 ml IV UD PRN PRN Reason: Hypoglycemia Diagnostic Test (Pha) (Accu-Chek 1 Each Strip) 1 each FS ACHS [facility] Last Admin: 08/04/21 08:28 Dose: 1 each Documented by: Gabapentin (Gabapentin 100 Mg Capsule) 200 mg PO BID [facility] Last Admin: 08/04/21 07:52 Dose: 200 mg Documented by: Glucose (Dextrose 31 Gm Oral.Susp) 15 gm PO PRN PRN PRN Reason: Hypoglycemia REMDESIVIR 100 mg/ Sodium (Chloride) 250 mls @ 500 mls/hr IV Q24H [facility] Stop: 08/06/21 14:29 Last Infusion: 08/03/21 15:23 Dose: Infused Documented by: Potassium Chloride 40 meq/ (Dextrose) 520 mls @ 130 mls/hr IV UD PRN PRN Reason: Potassium < 3 Magnesium Sulfate (Magnesium Sulfate) 2 gm in 50 mls @ 50 mls/hr IV UD PRN PRN Reason: Magnesium </= 1.6 Insulin Glargine (Insulin Glargine, Human 1 Unit/0.01 Ml) 10 unit SQ HS [facility] Last Admin: 08/03/21 20:54 Dose: 10 units Documented by: Insulin Human Lispro (Insulin Lispro 1 Unit/0.01 Ml Unit) 0 unit SQ [facility]; Protocol Last Admin: 08/03/21 20:55 Dose: 12 unit Documented by: Levothyroxine Sodium (Levothyroxine 25 Mcg Tablet) 25 mcg PO QAMAC [facility] Last Admin: 08/04/21 07:52 Dose: 25 mcg Documented by: Losartan Potassium (Losartan 25 Mg Tablet) 25 mg PO QDAY [facility] Last Admin: 08/04/21 07:20 Dose: Not Given Documented by: Ondansetron HCl (Ondansetron 4 Mg/2 Ml Vial) 4 mg IV Q4HP PRN PRN Reason: Nausea And Vomiting Polyethylene Glycol (Polyethylene Glycol 3350 17 Gm Packet) 17 gm PO DAILYP PRN PRN Reason: Constipation Potassium Chloride (Potassium Chloride 20 Meq Tablet) 40 meq PO UD PRN PRN Reason: Potssium is 3-3.5 Last Admin: 08/02/21 16:54 Dose: 40 meq Documented by: Potassium Chloride (Potassium Chloride 20 Meq Tablet) 40 meq PO UD PRN PRN Reason: Potassium < 3 Senna (Sennosides 1 Tablet) 2 tab PO DAILYP PRN PRN Reason: Constipation Sodium Chloride (0.9 % Sodium Chloride 10 Ml Syringe) 10 ml IV Q8 [facility] Last Admin: 08/04/21 07:54 Dose: 10 ml Documented by: ABG Interpretation ABG results: 08/02/21 11:32 ABG Methemoglobin TNP VBG pH TNP VBG pCO2 TNP VBG pO2 TNP VBG HCO3 TNP VBG Total CO2 TNP VBG O2 Saturation TNP VBG Base Excess TNP A/P Assessment and plan (1) HTN (hypertension): Status: Acute (2) Pneumonia due to 2019 novel coronavirus: Status: Acute (3) CAD (coronary artery disease): Status: Acute (4) DM2 (diabetes mellitus, type 2): Status: Acute (5) Hypertension: Status: Chronic Qualifiers: Hypertension type: essential hypertension Qualified Code(s): I10 - Essential (primary) hypertension (6) Hypothyroidism: Status: Chronic Qualifiers: Hypothyroidism type: due to Jhoan's thyroiditis Qualified Code(s): E03.8 - Other specified hypothyroidism (7) Anemia: Status: Acute Qualifiers: Anemia type: unspecified type Qualified Code(s): D64.9 - Anemia, unspecified Narrative A/P Narrative: Assessment and Plans: 1. CoVID pneumonia: Stays in inpatient PCU with telemetry Isolation: airborne and contact Supplemental oxygen therapy, titrate to achieve spo2>=92%, currently on 6L/min Prone 16hr/day as tolerated Remdesivir Dexamethasone Eliquis cbc w/ auto diff in the morning to trend WBC 2. Pulmonary embolism, primarily right lower lobe: Supplemental oxygen therapy, titrate to achieve spo2>=92%, currently on 6L/min Eliquis therapeutic dose 3. Hypothyroidism: Continue oral thyroid replacement therapy 4. Essential hypertension: Currently normotensive Continue Losartan 5. T2DM with diabetic neuropathy: HgA1c Hold oral hypoglycemics Lantus 10 unit HS for better glycemic control Correctional scale insulin AC HS Accu Chek AC HS Hypoglycemia protocol Diabetic diet Gabapentin 6. h/o CAD: Continue daily Aspirin 7. Anemia, normocytic normochromic: cbc w/ auto diff in the morning to trend H/H; transfuse pRBC if hemoglobin <7.0, active bleeding, or symptomatic GI ppx: not currently indicated DVT ppx: Eliquis Code status: Full Prognosis: guarded Disposition: inpatient PCU with telemetry Time Spent With Patient Time: Total time spent is greater than 50% in coordination of care (as documented) at patient's floor/unit and/or counseling patient: Total time spent with greater than 50% in coordination of care (as documented) at patient's floor/unit and/or counseling patient:: Greater than 35 minutes QUALITY VTE Deep Vein Thrombosis/Pulmonary Embolism Present on Admission: No
[2021-08-04] MEDS: INSULIN LISPRO 1 UNIT/0.01 ML UNIT SQ SCH ×4 (08:40→20:32)
[2021-08-04] MEDS: REMDESIVIR 100 MG in 0.9 % SODIUM CHLORIDE 250 ML IV SCH (14:51)
[2021-08-04] MEDS: INSULIN GLARGINE, HUMAN 1 UNIT/0.01 ML SQ SCH (20:32)
[2021-08-05] MEDS: 0.9 % SODIUM CHLORIDE 10 ML SYRINGE IV SCH ×4 (04:30→20:32)
[2021-08-05 07:10] LABS: Basophils # (Auto) 0.02 K/mcL (0.00-0.30); Basophils % (Auto) 0.2 % (0.0-2.0); Eosinophils # (Auto) 0.05 K/mcL (0.00-0.70); Eosinophils % (Auto) 0.6 % (0.0-7.0); Hematocrit 38.8 % (40.1-51.0); Hemoglobin 12.8 g/dL (13.7-17.5); Mean Cell Volume 83.4 fL (80.0-100.0); Mean Platelet Volume 11.2 fL (7.4-10.4); Monocytes # (Auto) 0.33 K/mcL (0.10-0.90); Monocytes % (Auto) 3.8 % (1.0-12.0); Neutrophils % (Auto) 79.4 % (38.0-78.0); Platelet Count 217 K/mcL (140-440); RBC 4.65 M/mcL (4.63-6.08); Red Cell Distribution Width 13.4 % (11.5-14.5); WBC 8.7 K/mcL (4.5-11.0)
[2021-08-05 07:50] LABS: ALT/SGPT 58 U/L (<40); AST/SGOT 84 U/L (<40); Albumin 2.8 gm/dL (3.2-5.2); Albumin/Globulin Ratio 0.8 (1.0-2.3); Alkaline Phosphatase 147 U/L (39-117); Bilirubin,Total 0.5 mg/dL (0.1-1.0); Blood Urea Nitrogen 17 mg/dL (8-23); Calcium 8.1 mg/dL (8.6-10.4); Carbon Dioxide 23 mmol/L (22-30); Chloride 103 mmol/L (96-108); Globulin 3.7 gm/dL (2.2-3.7); Glomerular Filtration Rate 104; Glucose 161 mg/dL (70-105)
[2021-08-05] MEDS: BARICITINIB 2 MG TABLET PO SCH (08:04)
[2021-08-05] MEDS: ASPIRIN 81 MG TAB.CHEW PO SCH (08:04)
[2021-08-05] MEDS: GABAPENTIN 100 MG CAPSULE PO SCH ×2 (08:05→20:18)
[2021-08-05] MEDS: APIXABAN 5 MG TABLET PO SCH ×2 (08:05→20:18)
[2021-08-05] MEDS: DEXAMETHASONE 4 MG TABLET PO SCH (08:05)
[2021-08-05] MEDS: LEVOTHYROXINE 25 MCG TABLET PO SCH (08:05)
[2021-08-05] MEDS: INSULIN LISPRO 1 UNIT/0.01 ML UNIT SQ SCH ×4 (09:29→20:28)
[2021-08-05] MEDS: LOSARTAN 25 MG TABLET PO SCH (09:30)
[2021-08-05] MEDS ORDERED: LOPERAMIDE 2 MG CAPSULE PO PRN (10:17)
--- NOTE | 2021-08-05 10:23 | Internal Med Progress Note ---
SUBJECTIVE Subjective Patient information: Note initiated : 08/05/21 at 10:21 am Service Date, if different from initiated Date: [] Patient: Pedro Luis Bang 66 y/o M admitted on 08/02/21 for Shortness of breath. Chief Complaint: [] Principal diagnosis: CoVID pneumonia Interval history: Mr. Bang is a 66 year old M Who was diagnosed with COVID several weeks ago has had worsening shortness of breath and cough for the past couple weeks. He has become very lethargic and his is quite concerned he went into urgent care and his sats were on room air were in the mid 80s. Patient complains of severe weakness. Is on 5 L in the ED. Patient denies fever chills nausea vomiting diarrhea chest pain. Patient is not vaccinated. 08/03 Patient requiring more oxygen. Patient states occasional cough. Shortness of breath similar to yesterday. CTA today with severe COVID-pneumonia but also pulmonary emboli predominantly i nvolving the right lower lobe. 08/04: Afebrile overnight. Was on high flow oxygen 35L/min FiO2 35%, switched to nasal cannula oxygen @6L/min this morning. On Dexamethasone and Remdesivir. Improving degree of shortness of breath. c/o nonproductive cough. c/o loss of sense of smell and taste. Improving appetite. Denies wheezing. Denies chest pain. Denies fever or chills or sweating. 08/05: Afebrile overnight. On 2L/min this morning. On Baricitinib, Dexamethasone and Remdesivir. Improving degree of shortness of breath. c/o nonproductive cough. c/o loss of sense of smell and taste. Improving appetite. Denies wheezing. Denies chest pain. Denies fever or chills or sweating. Pertinent ROS: Improving degree of shortness of breath. c/o nonproductive cough. c/o loss of sense of smell and taste. Improving appetite. Denies wheezing. Denies chest p ain. Denies fever or chills or sweating. Constitutional Vitals: Vital Signs Temp Pulse Resp BP Pulse Ox 36.1 C L 57 L 19 117/82 94 08/05/21 08:01 08/05/21 08:01 08/05/21 08:01 08/05/21 08:01 08/05/21 08:01 Period Temp Pulse Resp BP Sys/Munoz Pulse Ox Last 24 Hr 36.1 C-36.8 C 46-75 14-33 94-154/60-82 91-99 Intake and Output 08/04/21 08/05/21 08/05/21 21:59 05:59 13:59 Intake Total 850 480 360 Output Total 1495 375 475 Balance -645 105 -115 Weight 95.118 kg Intake & Output: Intake & Output 08/04/21 08/05/21 08/05/21 21:59 05:59 13:59 Intake Total 850 480 360 Output Total 1495 375 475 Balance -645 105 -115 Weight 95.118 kg Intake: IV 250 Veklury 100 mg In Sodium 250 Chloride 0.9% 250 ml @ 500 mls/ hr IV Q24H [facility] Rx#:[id number] Oral 600 480 360 Output: Void Amount 1045 375 475 Urine/Stool Mix 250 Stool 200 Other: Meal Dinner Breakfast Percent of Meal Consumed 100% 100% Feeding Ability Independent Independent Urine Appearance Clear Clear Clear Urine Color Straw Dark Yellow Dark Yellow Urine Odor Normal Normal Stool Color Brown Stool Consistency Liquid General appearance: average body habitus, cooperative and no acute distress Head Head exam: Present atraumatic and normal inspection Eye Eye exam: Present normal appearance ENT ENT exam: Present mucous membranes moist, normal exam and normal external ear exam Additional comments: Nasal cannula in place Neck Neck exam: Present normal inspection Respiratory Additional comments: Coarse breath sound in all lung falk Cardiovascular Cardiovascular exam: Present normal rate and rhythm GI/Abdominal GI/Abdominal exam: Present normal bowel sounds Back Exam Back exam: Present normal inspection Neurological Exam Neurological exam: Present alert and oriented X3 Skin Skin exam: Present intact and warm OBJ DATA Labs CBC & Chem 7: 08/05/21 06:13 08/05/21 06:13 Labs: Abnormal Lab Results 08/05/21 08/05/21 08/04/21 06:13 06:13 05:28 Hgb 12.8 L Hct 38.8 L MPV 11.2 H Neut % (Auto) 79.4 H Lymph % (Auto) Lymph # (Auto) 1.40 L D-Dimer VBG Lactic Acid Sodium Chloride Creatinine 0.6 L 0.5 L Glucose 161 H 206 H Hemoglobin A1c Calcium 8.1 L 8.4 L Phosphorus Ferritin GGT AST 84 H 74 H ALT 58 H Alkaline Phosphatase 147 H 146 H Lactate Dehydrogenase C-Reactive Protein Albumin 2.8 L 3.0 L Globulin Albumin/Globulin Ratio 0.8 L 0.8 L 08/04/21 08/03/21 08/03/21 05:28 05:09 05:09 Hgb 13.0 L 13.2 L Hct 38.3 L 39.3 L MPV 11.6 H 11.6 H Neut % (Auto) 82.3 H 81.1 H Lymph % (Auto) 14.2 L Lymph # (Auto) 1.20 L 0.98 L D-Dimer VBG Lactic Acid Sodium 132 L Chloride Creatinine 0.5 L Glucose 213 H Hemoglobin A1c Calcium 8.3 L Phosphorus 2.2 L Ferritin GGT 72 H AST 59 H ALT Alkaline Phosphatase Lactate Dehydrogenase 567 H C-Reactive Protein Albumin 2.6 L Globulin 4.0 H Albumin/Globulin Ratio 0.6 L 08/03/21 08/02/21 08/02/21 05:09 11:03 11:03 Hgb Hct MPV Neut % (Auto) Lymph % (Auto) Lymph # (Auto) D-Dimer > 20.0 H > 20.0 H VBG Lactic Acid Sodium Chloride Creatinine Glucose Hemoglobin A1c Calcium Phosphorus Ferritin 1126.0 H GGT AST ALT Alkaline Phosphatase Lactate Dehydrogenase C-Reactive Protein 7.20 H Albumin Globulin Albumin/Globulin Ratio 08/02/21 08/02/21 08/02/21 11:03 10:29 10:29 Hgb Hct MPV 11.9 H Neut % (Auto) 85.5 H Lymph % (Auto) 10.3 L Lymph # (Auto) 0.93 L D-Dimer VBG Lactic Acid 2.7 H Sodium 132 L Chloride 92 L Creatinine Glucose 193 H Hemoglobin A1c 9.6 H Calcium 8.4 L Phosphorus Ferritin GGT AST 73 H ALT Alkaline Phosphatase 131 H Lactate Dehydrogenase C-Reactive Protein Albumin 3.0 L Globulin 4.5 H Albumin/Globulin Ratio 0.7 L Meds: Medications Acetaminophen (Acetaminophen 325 Mg Tablet) 650 mg PO Q6HP PRN; Protocol PRN Reason: Per Pain Protocol/Fever > 101 Last Admin: 08/03/21 17:45 Dose: 650 mg Documented by: Albuterol/Ipratropium (Ipratropium/Albuterol 3 Ml Ampul.Neb) 3 ml NEB Q4HP PRN PRN Reason: Shortness Of Breath Apixaban (Apixaban 5 Mg Tablet) 10 mg PO BID [facility] Last Admin: 08/05/21 08:05 Dose: 10 mg Documented by: Aspirin (Aspirin 81 Mg Tab.Chew) 81 mg PO DAILY [facility] Last Admin: 08/05/21 08:04 Dose: 81 mg Documented by: Dexamethasone (Dexamethasone 4 Mg Tablet) 6 mg PO DAILY [facility] Last Admin: 08/05/21 08:05 Dose: 6 mg Documented by: Dextrose (Dextrose 50% 50 Ml Vial) 0 ml IV UD PRN PRN Reason: Hypoglycemia Diagnostic Test (Pha) (Accu-Chek 1 Each Strip) 1 each FS [facility] Last Admin: 08/05/21 08:00 Dose: 1 each Documented by: Gabapentin (Gabapentin 100 Mg Capsule) 200 mg PO BID [facility] Last Admin: 08/05/21 08:05 Dose: 200 mg Documented by: Glucose (Dextrose 31 Gm Oral.Susp) 15 gm PO PRN PRN PRN Reason: Hypoglycemia REMDESIVIR 100 mg/ Sodium (Chloride) 250 mls @ 500 mls/hr IV Q24H [facility] Stop: 08/06/21 14:29 Last Infusion: 08/04/21 15:21 Dose: Infused Documented by: Potassium Chloride 40 meq/ (Dextrose) 520 mls @ 130 mls/hr IV UD PRN PRN Reason: Potassium < 3 Magnesium Sulfate (Magnesium Sulfate) 2 gm in 50 mls @ 50 mls/hr IV UD PRN PRN Reason: Magnesium </= 1.6 Insulin Glargine (Insulin Glargine, Human 1 Unit/0.01 Ml) 10 unit SQ BID [facility] Insulin Human Lispro (Insulin Lispro 1 Unit/0.01 Ml Unit) 0 unit SQ [facility]; Protocol Last Admin: 08/05/21 09:29 Dose: Not Given Documented by: Levothyroxine Sodium (Levothyroxine 25 Mcg Tablet) 25 mcg PO QAMAC [facility] Last Admin: 08/05/21 08:05 Dose: 25 mcg Documented by: Loperamide HCl (Loperamide 2 Mg Capsule) 2 mg PO PRN PRN PRN Reason: Diarrhea Losartan Potassium (Losartan 25 Mg Tablet) 25 mg PO QDAY [facility] Last Admin: 08/05/21 09:30 Dose: Not Given Documented by: Ondansetron HCl (Ondansetron 4 Mg/2 Ml Vial) 4 mg IV Q4HP PRN PRN Reason: Nausea And Vomiting Polyethylene Glycol (Polyethylene Glycol 3350 17 Gm Packet) 17 gm PO DAILYP PRN PRN Reason: Constipation Potassium Chloride (Potassium Chloride 20 Meq Tablet) 40 meq PO UD PRN PRN Reason: Potssium is 3-3.5 Last Admin: 08/02/21 16:54 Dose: 40 meq Documented by: Potassium Chloride (Potassium Chloride 20 Meq Tablet) 40 meq PO UD PRN PRN Reason: Potassium < 3 Senna (Sennosides 1 Tablet) 2 tab PO DAILYP PRN PRN Reason: Constipation Sodium Chloride (0.9 % Sodium Chloride 10 Ml Syringe) 10 ml IV Q8 [facility] Last Admin: 08/05/21 04:44 Dose: 10 ml Documented by: ABG Interpretation ABG results: 08/02/21 11:32 ABG Methemoglobin TNP VBG pH TNP VBG pCO2 TNP VBG pO2 TNP VBG HCO3 TNP VBG Total CO2 TNP VBG O2 Saturation TNP VBG Base Excess TNP A/P Assessment and plan (1) HTN (hypertension): Status: Acute (2) Pneumonia due to 2019 novel coronavirus: Status: Acute (3) CAD (coronary artery disease): Status: Acute (4) DM2 (diabetes mellitus, type 2): Status: Acute (5) Hypothyroidism: Status: Chronic Qualifiers: Hypothyroidism type: due to Jhoan's thyroiditis Qualified Code(s): E03.8 - Other specified hypothyroidism (6) Anemia: Status: Acute Qualifiers: Anemia type: unspecified type Qualified Code(s): D64.9 - Anemia, unspecified Narrative A/P Narrative: Assessment and Plans: 1. CoVID pneumonia: Transfer to inpatient med surg with telemetry Isolation: airborne and contact Supplemental oxygen therapy, titrate to achieve spo2>=92%, currently on 2L/min Prone 16hr/day as tolerated Baricitinib Remdesivir Dexamethasone Eliquis cbc w/ auto diff in the morning to trend WBC 2. Pulmonary embolism, primarily right lower lobe: Supplemental oxygen therapy, titrate to achieve spo2>=92%, currently on 2L/min Eliquis therapeutic dose 3. Hypothyroidism: Continue oral thyroid replacement therapy 4. Essential hypertension: Currently normotensive Continue Losartan 5. T2DM with diabetic neuropathy: HgA1c Hold oral hypoglycemics Lantus 10 unit BID for better glycemic control Correctional scale insulin AC HS Accu Chek AC HS Hypoglycemia protocol Diabetic diet Gabapentin 6. h/o CAD: Continue daily Aspirin 7. Anemia, normocytic normochromic: cbc w/ auto diff in the morning to trend H/H; transfuse pRBC if hemoglobin <7.0, active bleeding, or symptomatic GI ppx: not currently indicated DVT ppx: Eliquis Code status: Full Prognosis: Stable Disposition: inpatient med surg with telemetry Time Spent With Patient Time: Total time spent is greater than 50% in coordination of care (as documented) at patient's floor/unit and/or counseling patient: Total time spent with greater than 50% in coordination of care (as documented) at patient's floor/unit and/or counseling patient:: Greater than 35 minutes QUALITY VTE Deep Vein Thrombosis/Pulmonary Embolism Present on Admission: No
[2021-08-05] MEDS: REMDESIVIR 100 MG in 0.9 % SODIUM CHLORIDE 250 ML IV SCH (14:47)
[2021-08-05] MEDS: ACETAMINOPHEN 325 MG TABLET PO PRN (19:07)
[2021-08-05] MEDS: INSULIN GLARGINE, HUMAN 1 UNIT/0.01 ML SQ SCH (20:28)
[2021-08-06] MEDS: 0.9 % SODIUM CHLORIDE 10 ML SYRINGE IV SCH (04:34)
[2021-08-06 07:27] LABS: Basophils # (Auto) 0.01 K/mcL (0.00-0.30); Basophils % (Auto) 0.1 % (0.0-2.0); Eosinophils # (Auto) 0.03 K/mcL (0.00-0.70); Eosinophils % (Auto) 0.3 % (0.0-7.0); Hematocrit 39.9 % (40.1-51.0); Hemoglobin 13.4 g/dL (13.7-17.5); Lymphocytes # (Auto) 1.26 K/mcL (1.50-4.80); Mean Cell Volume 82.8 fL (80.0-100.0); Mean Corpuscular HGB Conc 33.6 g/dL (31.0-36.0); Mean Platelet Volume 11.6 fL (7.4-10.4); Monocytes # (Auto) 0.39 K/mcL (0.10-0.90); Monocytes % (Auto) 4.3 % (1.0-12.0); Neutrophils % (Auto) 81.3 % (38.0-78.0); Platelet Count 231 K/mcL (140-440); RBC 4.82 M/mcL (4.63-6.08); Red Cell Distribution Width 13.5 % (11.5-14.5)
[2021-08-06 07:31] LABS: ALT/SGPT 64 U/L (<40); AST/SGOT 77 U/L (<40); Albumin/Globulin Ratio 0.8 (1.0-2.3); Alkaline Phosphatase 151 U/L (39-117); Bilirubin,Total 0.5 mg/dL (0.1-1.0); Blood Urea Nitrogen 14 mg/dL (8-23); Calcium 8.4 mg/dL (8.6-10.4); Carbon Dioxide 23 mmol/L (22-30); Chloride 102 mmol/L (96-108); Globulin 3.6 gm/dL (2.2-3.7); Glomerular Filtration Rate 104; Glucose 186 mg/dL (70-105)
[2021-08-06] MEDS: LEVOTHYROXINE 25 MCG TABLET PO SCH (07:38)
[2021-08-06] MEDS: INSULIN LISPRO 1 UNIT/0.01 ML UNIT SQ SCH ×2 (07:38→11:46)
[2021-08-06] MEDS: LOSARTAN 25 MG TABLET PO SCH (09:26)
[2021-08-06] MEDS: GABAPENTIN 100 MG CAPSULE PO SCH (09:26)
[2021-08-06] MEDS: ASPIRIN 81 MG TAB.CHEW PO SCH (09:26)
[2021-08-06] MEDS: APIXABAN 5 MG TABLET PO SCH (09:26)
[2021-08-06] MEDS: DEXAMETHASONE 4 MG TABLET PO SCH (09:26)
[2021-08-06] MEDS: INSULIN GLARGINE, HUMAN 1 UNIT/0.01 ML SQ SCH (09:27)
[2021-08-06] MEDS: BARICITINIB 2 MG TABLET PO SCH (11:45)
--- NOTE | 2021-08-06 12:16 | Discharge Summary ---
Discharge Provider Provider Patient information: Note initiated : 08/06/21 at 12:12 pm Service Date, if different from initiated Date: [] Patient: Pedro Luis Bang 66 y/o M admitted on 08/02/21 for Shortness of breath. Chief Complaint: [] Date of admission: 08/02/21 14:55 Discharge date: 08/06/21 Primary care physician: Sonido Mathews MD Attending physician on admission: Steve Pena Consults: 08/02/21 Consult to Physician [CONS] Stat Comment: Consulting Provider: Floyd Javier Reason For Exam: Physician to Consult Attending physician on discharge: Steve Adalgisa Pui Discharge Meds Discharge Medications Home Medications aspirin 81 mg tablet,delayed release (Adult Low Dose Aspirin) 81 mg PO QDAY 03/13/16 [History Confirmed 08/02/21 Last Taken 08/01/21] blood sugar diagnostic (Blood Glucose Test) #100 ea 03/29/21 [Rx Confirmed 08/02/21 Last Taken Unknown] blood-glucose meter (Blood Glucose Monitoring) #1 ea 03/29/21 [Rx Confirmed 08/02/21 Last Taken Unknown] lancets #100 ea 03/29/21 [Rx Confirmed 08/02/21 Last Taken Unknown] metformin 1,000 mg tablet 1,000 mg PO BID #60 tab 04/21/21 [Rx Confirmed 08/02/21 Last Taken 08/01/21] losartan 25 mg tablet 25 mg PO QDAY #30 tab 05/04/21 [Rx Confirmed 08/02/21 Last Taken 08/01/21] levothyroxine 25 mcg tablet (Synthroid) 25 mcg PO QDAY #60 tab 05/05/21 [Rx Confirmed 08/02/21 Last Taken Unknown] gabapentin 100 mg capsule 200 mg PO BID #120 cap 07/07/21 [Rx Confirmed 08/02/21 Last Taken 08/01/21] apixaban 5 mg tablet (Eliquis) 5 mg PO BID 30 Days #64 tab 08/06/21 [Rx Last Taken Unknown] COURSE Hospital Course Hospital course: Mr. Bang is a 66 year old M Who was diagnosed with COVID several weeks ago has had worsening shortness of breath and cough for the past couple weeks. He has become very lethargic and his is quite concerned he went into urgent care and his sats were on room air were in the mid 80s. Patient complains of severe weakness. Is on 5 L in the ED. Patient denies fever chills nausea vomiting diarrhea chest pain. Patient is not vaccinated. 08/03 Patient requiring more oxygen. Patient states occasional cough. Shortness of breath similar to yesterday. CTA today with severe COVID-pneumonia but also pulmonary emboli predominantly involving the right lower lobe. 08/04: Afebrile overnight. Was on high flow oxygen 35L/min FiO2 35%, switched to nasal cannula oxygen @6L/min this morning. On Dexamethasone and Remdesivir. Improving degree of shortness of breath. c/o nonproductive cough. c/o loss of sense of smell and taste. Improving appetite. Denies wheezing. Denies chest pain. Denies fever or chills or sweating. 08/05: Afebrile overnight. On 2L/min this morning. On Baricitinib, Dexamethasone and Remdesivir. Improving degree of shortness of breath. c/o nonproductive cough. c/o loss of sense of smell and taste. Improving appetite. Denies wheezing. Denies chest pain. Denies fever or chills or sweating. Pertinent ROS: Improving degree of shortness of breath. c/o nonproductive cough. c/o loss of sense of smell and taste. Improving appetite. Denies wheezing. Denies chest pain. Denies fever or chills or sweating. 08/06: In short, patient was being treated for CoVID pneumonia with supplemental oxygen therapy, Remdesivir, Baricitinib, and Dexamethasone. He was also being diagnosed with pulmonary embolism right lower lobe, and was being treated with Eliquis 10mg PO BID x7 days then 5mg PO BID. Reached clinical stabilty on 08/06, discharged home with home oxygen, Rx including Eliquis sent to pharmacy, and instruction to follow up with PCP 1-2 weeks given to him. All questions were answered prior to patient being physically discharged. Discharge diagnosis: CoVID pneumonia, pulmonary embolism Time Spent with Patient Time attestation: Total time spent providing and/or coordinating discharge services: Time spent: Less than 30 minutes EXAM Constitutional Vitals: Temp Pulse Resp BP Pulse Ox 36.7 C 57 L 18 135/77 92 08/06/21 12:00 08/06/21 12:00 08/06/21 12:00 08/06/21 12:00 08/06/21 12:00 General appearance: cooperative and no acute distress Head Head exam: Present atraumatic and normocephalic Eye Eye exam: Present EOMI and PERRL ENT ENT exam: Present mucous membranes moist, normal exam and normal external ear exam Additional comments: Nasal cannula in place Neck Neck exam: Present normal inspection; Absent lymphadenopathy, tenderness or thyromegaly Respiratory Respiratory exam: Present rhonchi; Absent accessory muscle use, respiratory distress or wheezes Cardiovascular Cardiovascular exam: Present normal rate and rhythm; Absent JVD GI/Abdominal GI/Abdominal exam: Present normal bowel sounds and soft; Absent organomegaly or tenderness Rectal Rectal exam: Present deferred Extremities Exam Extremities exam: Present full ROM, normal capillary refill and normal inspection; Absent tenderness Neurological Exam Neurological exam: Present alert, CN II-XII intact and oriented X3; Absent motor sensory deficit Psychiatric Psychiatric exam: Present normal affect and normal mood; Absent anxious or depressed Skin Skin exam: Present dry and intact Discharge Data Data Completed and Pending Labs on day of discharge: Labs from last 24 hours 08/06/21 08/06/21 06:29 06:29 WBC 9.0 RBC 4.82 Hgb 13.4 L Hct 39.9 L MCV 82.8 MCH 27.8 MCHC 33.6 RDW 13.5 Plt Count 231 MPV 11.6 H Neut % (Auto) 81.3 H Lymph % (Auto) 14.0 L Tucker % (Auto) 4.3 Eos % (Auto) 0.3 Baso % (Auto) 0.1 Lymph # (Auto) 1.26 L Tucker # (Auto) 0.39 Eos # (Auto) 0.03 Baso # (Auto) 0.01 Absolute Neutrophils 7.29 Sodium 137 Potassium 4.2 Chloride 102 Carbon Dioxide 23 Anion Gap 12.0 BUN 14 Creatinine 0.6 L GFR Calculation 104 Glucose 186 H Calcium 8.4 L Total Bilirubin 0.5 AST 77 H ALT 64 H Alkaline Phosphatase 151 H Total Protein 6.6 Albumin 3.0 L Globulin 3.6 Albumin/Globulin Ratio 0.8 L Preliminary micro results at discharge 08/02/21 11:03 Blood Culture - Preliminary Blood 08/02/21 10:55 Blood Culture - Preliminary Blood Discharge Plan Patient/Caregiver Discharge Instructions Activity: increase activity as tolerated Diet: Consistent Carbohydrate Instructions: COVID-19, Pneumonia (GEN) Prescriptions: New Eliquis 5 mg Tablet 5 mg PO BID 30 Days Qty: 64 0RF Rx Instructions: 10mg PO for 2 more days then 5mg PO BID Continued (DME) Blood Glucose Test Strip See Rx Instructions .Route Qty: 100 3RF Rx Instructions: use to test blood sugar once daily (DME) blood-glucose meter [Blood Glucose Monitoring] Kit See Rx Instructions .Route Qty: 1 0RF Rx Instructions: As directed, every morning (DME) lancets Misc See Rx Instructions .Route Qty: 100 0RF Rx Instructions: use to test blood sugar once daily metformin 1,000 mg tablet 1,000 mg PO BID Qty: 60 2RF levothyroxine [Synthroid] 25 mcg tablet 25 mcg PO QDAY Qty: 60 1RF aspirin [Adult Low Dose Aspirin] 81 mg tablet,delayed release (DR/EC) 81 mg PO QDAY 0RF losartan 25 mg tablet 25 mg PO QDAY Qty: 30 1RF gabapentin 100 mg capsule 200 mg PO BID Qty: 120 2RF Follow Up Plan Follow up with: Sonido Mathews MD [Primary Care Provider] - 08/09/21 10:30 am (Please check in at 10:15 am) Patient Disposition: Home, Self-Care Prognosis: Serious Rehab Potential: Good I certify that the patient requires SNF services: No Overall status at discharge: patient is progressing back to baseline Discharge Orders: Discharge Order (Routine); Ordered 08/06/21 Ordered By: Steve LYNN VTE Deep Vein Thrombosis/Pulmonary Embolism Present on Admission: No
== END 2021-08-06 13:50 | disposition home or self-care (01) | DRG 177 ==
LOC: ED 10:21 → ICU 14:55
PROVIDERS: ADMIT Internal Medicine; ATTEND Internal Medicine